=== PATIENT | female | born 1995 | race Caucasian/White ===

== ENCOUNTER 2017-10-14 14:07 | Inpatient (IN) | payer OTHER ==
[2017-10-14 15:46] VITALS: BMI 26.9
--- NOTE | 2017-10-14 15:59 | HP ---
COWS - Scale Resting Pulse: 1= [place] 81-100 Sweatin= Chills/Flushing Restless Observation: 3= Extraneous Movement Pupil Size: 1= Pupils >than Normal Bone or Joint Aches: 2= Severe Diffuse Aches Runny Nose/ Eye Tearin= Runny Nose/Eyes GI Upset > 30mins: 1= Stomach Cramp Tremor Observation: 2= Slight Tremor Visible Yawning Observation: 2= >3x During Session Anxiety or Irritability: 2=Irritable/Anxious Goose Flesh Skin: 0=Smooth Skin COWS Score: 17 Admission [facility] Chief Complaint: opioid withdrawal sx Allergies/Adverse Reactions: Allergies Allergy/AdvReac Type Severity Reaction Status Date / Time No Known Allergies Allergy Verified 10/14/17 15:55 History of Present Illness: 22 years old female with long history of opioid nicotine dependence has anxiety and right leg neuropathy is admitted to detox Exam Limitations: No Limitations - Ebola screening Have you traveled outside of the country in the last 21 days: No (N) Have you had contact with anyone from an Ebola affected area: No Have you been sick,other than usual withdrawal symptoms: No Do you have a fever: No - Review of Systems Constitutional: Changes in sleep, Weight Stable EENT: reports: No Symptoms Reported Respiratory: reports: Productive cough (greenish) Cardiac: reports: No Symptoms Reported GI: reports: Nausea, Poor Fluid Intake, Abdominal cramping : reports: No Symptoms Reported Musculoskeletal: reports: Back Pain, Joint Pain, Muscle Pain, Neck Pain Integumentary: reports: Change in Color (iv opioid) Neuro: reports: Tremors Endocrine: reports: No Symptoms Reported Hematology: reports: No Symptoms Reported Psychiatric: reports: Judgement Intact, Orientated x3, Anxious, Depressed Other Systems: Reviewed and Negative Patient History - Patient Medical History Hx Anemia: No Hx Asthma: No Hx Chronic Obstructive Pulmonary Disease (COPD): No Hx Cancer: No Hx Cardiac Disorders: No Hx Congestive Heart Failure: No Hx Hypertension: No Hx Hypercholesterolemia: No Hx Pacemaker: No HX Cerebrovascular Accident: No Hx Seizures: No Hx Dementia: No Hx Diabetes: No Hx Gastrointestinal Disorders: No Hx Liver Disease: No Hx Genitourinary Disorders: No Hx Sexually Transmitted Disorders: No Hx Renal Disease (ESRD): No Hx Thyroid Disease: No Hx Human Immunodeficiency Virus (HIV): No Hx Hepatitis C: No Hx Depression: Yes Hx Suicide Attempt: No Hx Bipolar Disorder: No Hx Schizophrenia: No - Patient Surgical History Past Surgical History: Yes Hx Neurologic Surgery: No Hx Cataract Extraction: No Hx Cardiac Surgery: No Hx Lung Surgery: No Hx Breast Surgery: No Hx Breast Biopsy: No Hx Abdominal Surgery: No Hx Appendectomy: No Hx Cholecystectomy: No Hx Genitourinary Surgery: No Hx Section: No Hx Orthopedic Surgery: Yes (right foot 2016) Hx Hysterectomy: No Anesthesia Reaction: No - PPD History Previous Implant?: Yes Documented Results: Negative w/o proof Implanted On Prior R Admission?: No PPD to be Administered?: Yes - Reproductive History Patient is a Female of Child Bearing Age (11 -55 yrs old): Yes Last Menstrual Period: 10/03/17 Patient : No - Smoking Cessation Smoking history: Current every day smoker Have you smoked in the past 12 months: Yes Aproximately how many cigarettes per day: 15 Cigars Per Day: 0 Hx Chewing Tobacco Use: No Initiated information on smoking cessation: Yes 'Breaking Loose' booklet given: 10/14/17 - Substance & Tx. History Hx Alcohol Use: No Hx Substance Use: Yes Substance Use Type: Cocaine, Marijuana, Opiates Hx Substance Use Treatment: Yes (08/2017 [facility]) - Substances Abused Heroin Route: Injection Frequency: Daily Amount used: 15 bags Age of first use: 13 Date of Last Use: 10/14/17 Family Disease History - Family Disease History Family Disease History: Diabetes: Father (), Other: Father Admission Physical Exam BHS - Vital Signs Vital Signs: Vital Signs - 24 hr 10/14/17 15:18 Temperature 97.8 F Pulse Rate 89 Respiratory 20 Rate Blood Pressure 128/73 - Physical General Appearance: Yes: Appropriately Dressed, Mild Distress, Tremorous, Irritable, Sweating, Anxious HEENTM: Yes: Hearing grossly Normal, Normocephalic, Normal Voice Respiratory: Yes: Chest Non-Tender, Lungs Clear, Normal Breath Sounds, No Respiratory Distress, No Accessory Muscle Use Neck: Yes: Supple, Trachea in good position Breast: Yes: Breasts Symetrical, No Discharge Cardiology: Yes: Regular Rhythm, Regular Rate, S1, S2 Abdominal: Yes: Normal Bowel Sounds, Non Tender, Flat Genitourinary: Yes: Within Normal Limits Back: Yes: Normal Inspection Musculoskeletal: Yes: full range of Motion, Gait Steady, Back pain, Muscle Pain Extremities: Yes: Normal Inspection, Normal Range of Motion, Non-Tender, Tremors Neurological: Yes: Fully Oriented, Alert, Motor Strength 5/5, Normal Response, Depressed Affect Integumentary: Yes: Warm, Track Razo (chest wall) Lymphatic: Yes: Within Normal Limits - Diagnostic (1) Opioid dependence with withdrawal Current Visit: Yes Status: Acute (2) Nicotine dependence Current Visit: Yes Status: Acute Qualifiers: Nicotine product type: cigarettes Substance use status: in withdrawal Qualified Code(s): F17.213 - Nicotine dependence, cigarettes, with withdrawal (3) Neuropathy of right lower extremity Current Visit: Yes Status: Chronic (4) Anxiety Current Visit: Yes Status: Suspected Cleared for Admission [facility] - Detox or Rehab [facility] Level of Care: Medically Managed Detox Regimen/Protocol: Methadone [facility] Breath Alcohol Content Breath Alcohol Content: 0 Urine Pregancy Test - Result Urine Test Results: Negative- NO Line Present Urine Drug Screen - Results Drug Screen Negative: No Urine Drug Screen Results: THC-Marijuana, CORA-Cocaine, OPI-Opiates, MTD- Methadone
[2017-10-14] MEDS ORDERED: guaiFENesin/D-METHORPHAN HB 10 ML UNIT-DOSE CUPS PO PRN (16:03)
[2017-10-14] MEDS ORDERED: LOPERAMIDE HCL 2 MG CAPSULE PO PRN (16:03)
[2017-10-14] MEDS ORDERED: MAG HYDROX/AL HYDROX/SIMETH 30 ML UNIT-DOSE CUP PO PRN (16:03)
[2017-10-14] MEDS ORDERED: MAGNESIUM CITRATE 300 ML BOTTLE PO PRN (16:03)
[2017-10-14] MEDS ORDERED: IBUPROFEN 400 MG TABLET (FP) PO PRN (16:03)
[2017-10-14] MEDS ORDERED: ACETAMINOPHEN 325 MG TABLET (FP) PO PRN (16:36)
[2017-10-14] MEDS ORDERED: MAGNESIUM HYDROX 2400MG/30ML ORAL SUSPENSION 30 ML CUP PO PRN (16:37)
[2017-10-14] MEDS ORDERED: MENTHOL/PHENOL 1 EACH UD MM PRN (16:37)
[2017-10-14] MEDS ORDERED: P-EPHED 60MG/TRIPROLIDI 2.5MG TABLET PO PRN (16:39)
[2017-10-14] MEDS ORDERED: BACITRACIN 0.9 GM PACKET TP ONE (17:30)
[2017-10-14] MEDS ORDERED: METHADONE HCL 10 MG TABLET (FOR DETOX USE ONLY) PO ONE ×2 (17:30→23:00)
[2017-10-14] MEDS: diazePAM 5 MG TABLET PO PRN (18:13)
[2017-10-14] MEDS: NICOTINE 21 MG/24 HOURS TOPICAL PATCH TD SCH ×2 (18:14→20:05)
[2017-10-14] MEDS ORDERED: MELATONIN 5 MG TABLETS PO PRN (22:00)
[2017-10-14] MEDS: THIAMINE HCL 100 MG TABLET (FP) PO SCH (22:33)
[2017-10-14] MEDS: GABAPENTIN 300 MG CAPSULE (FP) PO SCH (22:33)
[2017-10-14] MEDS: BACLOFEN 10 MG TABLET (FP) PO SCH (22:33)
[2017-10-15] MEDS: BACLOFEN 10 MG TABLET (FP) PO SCH ×3 (05:23→22:50)
[2017-10-15] MEDS: GABAPENTIN 300 MG CAPSULE (FP) PO SCH ×3 (05:23→22:51)
--- NOTE | 2017-10-15 09:22 | EKG ---
Test Reason : Blood Pressure : / mmHG Vent. Rate : 075 BPM Atrial Rate : 075 BPM P-R Int : 124 ms QRS Dur : 090 ms QT Int : 394 ms P-R-T Axes : 044 076 018 degrees QTc Int : 439 ms NORMAL SINUS RHYTHM NORMAL ECG NO PREVIOUS ECGS AVAILABLE Confirmed by RHONA MORRIS, JIA ([id number]) on 10/15/2017 9:22:23 AM Referred By: Confirmed By:JIA MELGOZA MD
[2017-10-15] MEDS ORDERED: METHADONE HCL 10 MG TABLET (FOR DETOX USE ONLY) PO ONE (10:00)
[2017-10-15 10:05] LABS: URINE APPEARANCE TURBID; URINE BILIRUBIN NEGATIVE (<2.0 mg/dL); URINE COLOR YELLOW; URINE GLUCOSE (UA) NEGATIVE (NEGATIVE); URINE KETONE TRACE (NEGATIVE); URINE LEUK ESTERASE NEGATIVE (NEGATIVE); URINE NITRITE NEGATIVE (NEGATIVE); URINE PROTEIN NEGATIVE (NEGATIVE); URINE UROBILINOGEN NEGATIVE mg/dL (0.2-1.0)
[2017-10-15 10:10] LABS: HEMATOCRIT 38.6 % (32.4-45.2); HEMOGLOBIN 13.3 GM/dL (10.7-15.3); MCH 29.8 pg (25.7-33.7); MCHC 34.5 g/dl (32.0-36.0); MEAN CELL VOLUME 86.5 fl (80-96); MEAN PLT VOLUME 7.5 fl (7.5-11.1); PLATELET COUNT 368 K/MM3 (134-434); RBC 4.47 M/mm3 (3.60-5.2); RDW 14.3 % (11.6-15.6); WHITE BLOOD COUNT 6.2 K/mm3 (4.0-10.0)
[2017-10-15] MEDS: PRENATAL VITAMINS W/ FOLIC ACID TABLET (FP) PO SCH (10:23)
[2017-10-15] MEDS: diazePAM 5 MG TABLET PO PRN ×4 (10:24→23:08)
[2017-10-15] MEDS: NICOTINE 21 MG/24 HOURS TOPICAL PATCH TD SCH (10:24)
[2017-10-15 10:34] LABS: ALBUMIN 3.8 g/dl (3.4-5.0); ALK PHOS 60 U/L (45-117); ANION GAP 7 (8-16); BILIRUBIN,TOTAL 0.3 mg/dL (0.2-1.0); BLOOD UREA NITROGEN 12 mg/dL (7-18); CALCIUM 8.8 mg/dL (8.5-10.1); CHLORIDE 106 mmol/L (98-107); CO2 28 mmol/L (21-32); CREATININE 0.8 mg/dL (0.55-1.02); GLUCOSE,RANDOM 85 mg/dL (74-106); POTASSIUM 4.3 mmol/L (3.5-5.1); SGOT/AST 9 U/L (15-37); SGPT/ALT 19 U/L (12-78); SODIUM 141 mmol/L (136-145); TOT PROT 7.2 g/dl (6.4-8.2)
--- NOTE | 2017-10-15 14:03 | CONSULT ---
[facility] Psychiatric Consult - Data Date of interview: 10/15/17 Admission source: [facility] Identifying data: First admission to [facility] for this 22 y/o female seeking detox treatment on for heroin,cocaine (crack) and cannabis dependence.Patient is single without dependents,domiciled,unemployed and supported on food stamps. Substance Abuse History: Discussed with patient.Ms Putnam confirms continuous use of heroin (IV),crack,marihuana and occasional street purchases of xanax.Details in current [facility] report : Smoking history: Current every day smoker. Have you smoked in the past 12 months: Yes. Aproximately how many cigarettes per day: 15. Cigars Per Day: 0. Hx Chewing Tobacco Use: No. Initiated information on smoking cessation: Yes. 'Breaking Loose' booklet given : 10/14/17. - Substance & Tx. History. Hx Alcohol Use: No. Hx Substance Use: Yes. Substance Use Type: Cocaine, Marijuana, Opiates. Hx Substance Use Treatment: Yes (08/2017 [facility]). - Substances Abused. Heroin. Route : Injection. Frequency: Daily. Amount used: 15 bags. Age of first use: 13. Date of Last Use: 10/14/17 Medical History: Patient endorses good general health. Psychiatric History: Patient denies. Physical/Sexual Abuse/Trauma History: Patient denies. Additional Comment: Urine Drug Screen Results: THC-Marijuana, CORA-Cocaine, OPI- Opiates, MTD-Methadone.Noted. Mental Status Exam - Mental Status Exam Alert and Oriented to: Time, Place, Person Cognitive Function: Good Patient Appearance: Well Groomed Mood: Hopeful, Euthymic Affect: Appropriate, Normal Range Patient Behavior: Appropriate, Cooperative Speech Pattern: Clear, Appropriate Voice Loudness: Normal Thought Process: Intact, Goal Oriented Thought Disorder: Not Present Hallucinations: Denies Suicidal Ideation: Denies Homicidal Ideation: Denies Insight/Judgement: Poor Sleep: Poorly, Difficulty falling asleep (wants trazodone) Appetite: Good Muscle strength/Tone: Normal Gait/Station: Normal Psychiatric Findings - Problem List ([place] 1, 2,3) (1) Opioid dependence with withdrawal Current Visit: Yes Status: Acute (2) Nicotine dependence Current Visit: Yes Status: Acute Qualifiers: Nicotine product type: cigarettes Substance use status: in withdrawal Qualified Code(s): F17.213 - Nicotine dependence, cigarettes, with withdrawal (3) Cocaine dependence Current Visit: Yes Status: Acute (4) Cannabis dependence Current Visit: Yes Status: Acute (5) Insomnia Current Visit: Yes Status: Acute - Initial Treatment Plan Initial Treatment Plan: Psychoeducation.Sleep hygiene.Detoxification in effect.Trazodone 50 mg po hs (patient's specific request).Side effects/benefits discussed with the patient.Agrees with this careplan.Observation.Medication is verified : prior exposure to trazodone is confirmed by pharmacy claims of .
--- NOTE | 2017-10-15 15:36 | PN ---
BHS COWS - Scale Resting Pulse: 1= [place] 81-100 Sweatin= Chills/Flushing Restless Observation: 3= Extraneous Movement Pupil Size: 1= Pupils >than Normal Bone or Joint Aches: 2= Severe Diffuse Aches Runny Nose/ Eye Tearin= Nasal Congestion GI Upset > 30mins: 2= Nausea/Diarrhea Tremor Observation of Outstretched Hands: 2= Slight Tremor Visible Yawning Observation: 1= 1-2x During Session Anxiety or Irritability: 2=Irritable/Anxious Goose Flesh Skin: 0=Smooth Skin COWS Score: 16 S Progress Note (SOAP) Subjective: ALERT,PAIN IN THE BODY AND BACK,TREMOR,INTERRUPTED SLEEP Objective: 10/15/17 15:34 Vital Signs Temperature 99.9 F H 10/15/17 14:00 Pulse Rate 91 H 10/15/17 14:00 Respiratory Rate 20 10/15/17 14:00 Blood Pressure 99/63 10/15/17 14:00 O2 Sat by Pulse Oximetry (%) EKG NSR,NORMAL ECG PROLONG QT 394/439 Laboratory Last Values WBC 6.2 K/mm3 (4.0-10.0) 10/15/17 08:00 RBC 4.47 M/mm3 (3.60-5.2) 10/15/17 08:00 Hgb 13.3 GM/dL (10.7-15.3) 10/15/17 08:00 Hct 38.6 % (32.4-45.2) 10/15/17 08:00 MCV 86.5 fl (80-96) 10/15/17 08:00 MCH 29.8 pg (25.7-33.7) 10/15/17 08:00 MCHC 34.5 g/dl (32.0-36.0) 10/15/17 08:00 RDW 14.3 % (11.6-15.6) 10/15/17 08:00 Plt Count 368 K/MM3 (134-434) 10/15/17 08:00 MPV 7.5 fl (7.5-11.1) 10/15/17 08:00 Sodium 141 mmol/L (136-145) 10/15/17 08:00 Potassium 4.3 mmol/L (3.5-5.1) 10/15/17 08:00 Chloride 106 mmol/L (98-107) 10/15/17 08:00 Carbon Dioxide 28 mmol/L (21-32) 10/15/17 08:00 Anion Gap 7 (8-16) L 10/15/17 08:00 BUN 12 mg/dL (7-18) 10/15/17 08:00 Creatinine 0.8 mg/dL (0.55-1.02) 10/15/17 08:00 Creat Clearance w eGFR > 60 (>60) 10/15/17 08:00 Random Glucose 85 mg/dL (74-106) 10/15/17 08:00 Calcium 8.8 mg/dL (8.5-10.1) 10/15/17 08:00 Total Bilirubin 0.3 mg/dL (0.2-1.0) 10/15/17 08:00 AST 9 U/L (15-37) L 10/15/17 08:00 ALT 19 U/L (12-78) 10/15/17 08:00 Alkaline Phosphatase 60 U/L (45-117) 10/15/17 08:00 Total Protein 7.2 g/dl (6.4-8.2) 10/15/17 08:00 Albumin 3.8 g/dl (3.4-5.0) 10/15/17 08:00 Urine Color Yellow 10/15/17 09:00 Urine Appearance Turbid 10/15/17 09:00 Urine pH 5.0 (5.0-8.0) 10/15/17 09:00 Ur Specific [place] 1.017 (1.001-1.035) 10/15/17 09:00 Urine Protein Negative (NEGATIVE) 10/15/17 09:00 Urine Glucose (UA) Negative (NEGATIVE) 10/15/17 09:00 Urine Ketones Trace (NEGATIVE) H 10/15/17 09:00 Urine Blood Negative (NEGATIVE) 10/15/17 09:00 Urine Nitrite Negative (NEGATIVE) 10/15/17 09:00 Urine Bilirubin Negative (<2.0 mg/dL) 10/15/17 09:00 Urine Urobilinogen Negative mg/dL (0.2-1.0) 10/15/17 09:00 Ur Leukocyte Esterase Negative (NEGATIVE) 10/15/17 09:00 RPR Titer Nonreactive (NONREACTIVE) 10/15/17 08:00 HIV 1&2 Antibody Screen Negative 10/15/17 08:00 HIV P24 Antigen Negative 10/15/17 08:00 Assessment: 10/15/17 15:35 WITHDRAWAL SYMPTOM Plan: CONTINUE DETOX
[2017-10-15] MEDS: THIAMINE HCL 100 MG TABLET (FP) PO SCH (22:51)
[2017-10-15] MEDS: traZODone HCL 50 MG TABLET (FP) PO SCH (22:52)
[2017-10-16] MEDS: BACLOFEN 10 MG TABLET (FP) PO SCH ×3 (06:05→22:15)
[2017-10-16] MEDS: GABAPENTIN 300 MG CAPSULE (FP) PO SCH ×3 (06:05→22:15)
[2017-10-16] MEDS ORDERED: METHADONE HCL 5 MG TABLET (FOR DETOX USE ONLY) PO ONE (10:00)
[2017-10-16] MEDS: diazePAM 5 MG TABLET PO PRN ×3 (10:21→19:03)
[2017-10-16] MEDS: PRENATAL VITAMINS W/ FOLIC ACID TABLET (FP) PO SCH (10:22)
[2017-10-16] MEDS: NICOTINE 21 MG/24 HOURS TOPICAL PATCH TD SCH (10:22)
--- NOTE | 2017-10-16 16:48 | PN ---
BHS COWS - Scale Resting Pulse: 1= [place] 81-100 Sweatin= Chills/Flushing Restless Observation: 3= Extraneous Movement Pupil Size: 0= Normal to Room Light Bone or Joint Aches: 2= Severe Diffuse Aches Runny Nose/ Eye Tearin= Runny Nose/Eyes GI Upset > 30mins: 2= Nausea/Diarrhea Tremor Observation of Outstretched Hands: 2= Slight Tremor Visible Yawning Observation: 1= 1-2x During Session Anxiety or Irritability: 2=Irritable/Anxious Goose Flesh Skin: 0=Smooth Skin COWS Score: 16 BHS Progress Note (SOAP) Subjective: Patient asleep but easily aroused, refused to speak with aligner typewriter Objective: 10/16/17 16:47 Last Vital Signs Temp Pulse Resp BP Pulse Ox 97.1 F L 81 16 99/64 10/16/17 14:00 10/16/17 14:00 10/16/17 14:00 10/16/17 14:00 Laboratory Tests 10/15/17 10/15/17 10/15/17 08:00 08:00 08:00 WBC 6.2 RBC 4.47 Hgb 13.3 Hct 38.6 MCV 86.5 MCH 29.8 MCHC 34.5 RDW 14.3 Plt Count 368 MPV 7.5 Sodium 141 Potassium 4.3 Chloride 106 Carbon Dioxide 28 Anion Gap 7 L BUN 12 Creatinine 0.8 Creat Clearance w eGFR > 60 Random Glucose 85 Calcium 8.8 Total Bilirubin 0.3 AST 9 L ALT 19 Alkaline Phosphatase 60 Total Protein 7.2 Albumin 3.8 Urine Color Urine Appearance Urine pH Ur Specific [place] Urine Protein Urine Glucose (UA) Urine Ketones Urine Blood Urine Nitrite Urine Bilirubin Urine Urobilinogen Ur Leukocyte Esterase RPR Titer Nonreactive HIV 1&2 Antibody Screen HIV P24 Antigen 10/15/17 10/15/17 08:00 09:00 WBC RBC Hgb Hct MCV MCH MCHC RDW Plt Count MPV Sodium Potassium Chloride Carbon Dioxide Anion Gap BUN Creatinine Creat Clearance w eGFR Random Glucose Calcium Total Bilirubin AST ALT Alkaline Phosphatase Total Protein Albumin Urine Color Yellow Urine Appearance Turbid Urine pH 5.0 Ur Specific [place] 1.017 Urine Protein Negative Urine Glucose (UA) Negative Urine Ketones Trace H Urine Blood Negative Urine Nitrite Negative Urine Bilirubin Negative Urine Urobilinogen Negative Ur Leukocyte Esterase Negative RPR Titer HIV 1&2 Antibody Screen Negative HIV P24 Antigen Negative Labs reviewed Assessment: 10/16/17 16:48 Withdrawal symptoms Plan: Continue detox Encouraged PO hydration (water)
[2017-10-16] MEDS: traZODone HCL 50 MG TABLET (FP) PO SCH (22:15)
[2017-10-16] MEDS: BACITRACIN 0.9 GM PACKET TP SCH (22:15)
[2017-10-16] MEDS: THIAMINE HCL 100 MG TABLET (FP) PO SCH (22:15)
[2017-10-17] MEDS: BACLOFEN 10 MG TABLET (FP) PO SCH ×3 (06:34→22:10)
[2017-10-17] MEDS: GABAPENTIN 300 MG CAPSULE (FP) PO SCH ×3 (06:34→22:10)
[2017-10-17] MEDS ORDERED: METHADONE HCL 5 MG TABLET (FOR DETOX USE ONLY) PO ONE (10:00)
[2017-10-17] MEDS: BACITRACIN 0.9 GM PACKET TP SCH ×2 (10:57→22:09)
[2017-10-17] MEDS: PRENATAL VITAMINS W/ FOLIC ACID TABLET (FP) PO SCH (10:57)
[2017-10-17] MEDS: NICOTINE 21 MG/24 HOURS TOPICAL PATCH TD SCH (10:57)
[2017-10-17] MEDS: diazePAM 5 MG TABLET PO PRN ×2 (11:02→15:14)
--- NOTE | 2017-10-17 12:26 | PN ---
BHS Progress Note (SOAP) Subjective: joint pain body ache sweat tremor trouble sleep anxiety irritable Objective: 10/17/17 12:25 Vital Signs Temperature 97.7 F 10/17/17 10:21 Pulse Rate 69 10/17/17 10:21 Respiratory Rate 18 10/17/17 10:21 Blood Pressure 101/61 10/17/17 10:21 O2 Sat by Pulse Oximetry (%) Laboratory Last Values WBC 6.2 K/mm3 (4.0-10.0) 10/15/17 08:00 RBC 4.47 M/mm3 (3.60-5.2) 10/15/17 08:00 Hgb 13.3 GM/dL (10.7-15.3) 10/15/17 08:00 Hct 38.6 % (32.4-45.2) 10/15/17 08:00 MCV 86.5 fl (80-96) 10/15/17 08:00 MCH 29.8 pg (25.7-33.7) 10/15/17 08:00 MCHC 34.5 g/dl (32.0-36.0) 10/15/17 08:00 RDW 14.3 % (11.6-15.6) 10/15/17 08:00 Plt Count 368 K/MM3 (134-434) 10/15/17 08:00 MPV 7.5 fl (7.5-11.1) 10/15/17 08:00 Sodium 141 mmol/L (136-145) 10/15/17 08:00 Potassium 4.3 mmol/L (3.5-5.1) 10/15/17 08:00 Chloride 106 mmol/L (98-107) 10/15/17 08:00 Carbon Dioxide 28 mmol/L (21-32) 10/15/17 08:00 Anion Gap 7 (8-16) L 10/15/17 08:00 BUN 12 mg/dL (7-18) 10/15/17 08:00 Creatinine 0.8 mg/dL (0.55-1.02) 10/15/17 08:00 Creat Clearance w eGFR > 60 (>60) 10/15/17 08:00 Random Glucose 85 mg/dL (74-106) 10/15/17 08:00 Calcium 8.8 mg/dL (8.5-10.1) 10/15/17 08:00 Total Bilirubin 0.3 mg/dL (0.2-1.0) 10/15/17 08:00 AST 9 U/L (15-37) L 10/15/17 08:00 ALT 19 U/L (12-78) 10/15/17 08:00 Alkaline Phosphatase 60 U/L (45-117) 10/15/17 08:00 Total Protein 7.2 g/dl (6.4-8.2) 10/15/17 08:00 Albumin 3.8 g/dl (3.4-5.0) 10/15/17 08:00 Urine Color Yellow 10/15/17 09:00 Urine Appearance Turbid 10/15/17 09:00 Urine pH 5.0 (5.0-8.0) 10/15/17 09:00 Ur Specific [place] 1.017 (1.001-1.035) 10/15/17 09:00 Urine Protein Negative (NEGATIVE) 10/15/17 09:00 Urine Glucose (UA) Negative (NEGATIVE) 10/15/17 09:00 Urine Ketones Trace (NEGATIVE) H 10/15/17 09:00 Urine Blood Negative (NEGATIVE) 10/15/17 09:00 Urine Nitrite Negative (NEGATIVE) 10/15/17 09:00 Urine Bilirubin Negative (<2.0 mg/dL) 10/15/17 09:00 Urine Urobilinogen Negative mg/dL (0.2-1.0) 10/15/17 09:00 Ur Leukocyte Esterase Negative (NEGATIVE) 10/15/17 09:00 RPR Titer Nonreactive (NONREACTIVE) 10/15/17 08:00 HIV 1&2 Antibody Screen Negative 10/15/17 08:00 HIV P24 Antigen Negative 10/15/17 08:00 lab noted Assessment: 10/17/17 12:26 withdrawal sx Plan: continue detox
[2017-10-17] MEDS: NICOTINE POLACRILEX 4 MG GUM BUC PRN ×2 (14:35→22:37)
[2017-10-17] MEDS: traZODone HCL 50 MG TABLET (FP) PO SCH (22:09)
[2017-10-17] MEDS: THIAMINE HCL 100 MG TABLET (FP) PO SCH (22:10)
[2017-10-18] MEDS: GABAPENTIN 300 MG CAPSULE (FP) PO SCH ×3 (05:46→22:07)
[2017-10-18] MEDS: BACLOFEN 10 MG TABLET (FP) PO SCH ×3 (05:46→22:07)
[2017-10-18] MEDS ORDERED: METHADONE HCL 10 MG TABLET (FOR DETOX USE ONLY) PO ONE (10:00)
[2017-10-18] MEDS: BACITRACIN 0.9 GM PACKET TP SCH ×2 (10:19→22:07)
[2017-10-18] MEDS: NICOTINE 21 MG/24 HOURS TOPICAL PATCH TD SCH (10:19)
[2017-10-18] MEDS: PRENATAL VITAMINS W/ FOLIC ACID TABLET (FP) PO SCH (10:19)
--- NOTE | 2017-10-18 12:05 | PN ---
BHS Progress Note (SOAP) Subjective: feeling better less sweat no tremor tolerated food and fluid well slept throughout the night Objective: 10/18/17 12:05 Vital Signs Temperature 98.2 F 10/18/17 09:01 Pulse Rate 79 10/18/17 09:01 Respiratory Rate 16 10/18/17 09:01 Blood Pressure 121/59 10/18/17 09:01 O2 Sat by Pulse Oximetry (%) Laboratory Last Values WBC 6.2 K/mm3 (4.0-10.0) 10/15/17 08:00 RBC 4.47 M/mm3 (3.60-5.2) 10/15/17 08:00 Hgb 13.3 GM/dL (10.7-15.3) 10/15/17 08:00 Hct 38.6 % (32.4-45.2) 10/15/17 08:00 MCV 86.5 fl (80-96) 10/15/17 08:00 MCH 29.8 pg (25.7-33.7) 10/15/17 08:00 MCHC 34.5 g/dl (32.0-36.0) 10/15/17 08:00 RDW 14.3 % (11.6-15.6) 10/15/17 08:00 Plt Count 368 K/MM3 (134-434) 10/15/17 08:00 MPV 7.5 fl (7.5-11.1) 10/15/17 08:00 Sodium 141 mmol/L (136-145) 10/15/17 08:00 Potassium 4.3 mmol/L (3.5-5.1) 10/15/17 08:00 Chloride 106 mmol/L (98-107) 10/15/17 08:00 Carbon Dioxide 28 mmol/L (21-32) 10/15/17 08:00 Anion Gap 7 (8-16) L 10/15/17 08:00 BUN 12 mg/dL (7-18) 10/15/17 08:00 Creatinine 0.8 mg/dL (0.55-1.02) 10/15/17 08:00 Creat Clearance w eGFR > 60 (>60) 10/15/17 08:00 Random Glucose 85 mg/dL (74-106) 10/15/17 08:00 Calcium 8.8 mg/dL (8.5-10.1) 10/15/17 08:00 Total Bilirubin 0.3 mg/dL (0.2-1.0) 10/15/17 08:00 AST 9 U/L (15-37) L 10/15/17 08:00 ALT 19 U/L (12-78) 10/15/17 08:00 Alkaline Phosphatase 60 U/L (45-117) 10/15/17 08:00 Total Protein 7.2 g/dl (6.4-8.2) 10/15/17 08:00 Albumin 3.8 g/dl (3.4-5.0) 10/15/17 08:00 Urine Color Yellow 10/15/17 09:00 Urine Appearance Turbid 10/15/17 09:00 Urine pH 5.0 (5.0-8.0) 10/15/17 09:00 Ur Specific [place] 1.017 (1.001-1.035) 10/15/17 09:00 Urine Protein Negative (NEGATIVE) 10/15/17 09:00 Urine Glucose (UA) Negative (NEGATIVE) 10/15/17 09:00 Urine Ketones Trace (NEGATIVE) H 10/15/17 09:00 Urine Blood Negative (NEGATIVE) 10/15/17 09:00 Urine Nitrite Negative (NEGATIVE) 10/15/17 09:00 Urine Bilirubin Negative (<2.0 mg/dL) 10/15/17 09:00 Urine Urobilinogen Negative mg/dL (0.2-1.0) 10/15/17 09:00 Ur Leukocyte Esterase Negative (NEGATIVE) 10/15/17 09:00 RPR Titer Nonreactive (NONREACTIVE) 10/15/17 08:00 HIV 1&2 Antibody Screen Negative 10/15/17 08:00 HIV P24 Antigen Negative 10/15/17 08:00 lab noted Assessment: 10/18/17 12:05 mild withdrawal sx Plan: medically supervised detox
[2017-10-18] MEDS: THIAMINE HCL 100 MG TABLET (FP) PO SCH (22:07)
[2017-10-18] MEDS: traZODone HCL 50 MG TABLET (FP) PO SCH (22:07)
[2017-10-19] MEDS: BACLOFEN 10 MG TABLET (FP) PO SCH (05:33)
[2017-10-19] MEDS: GABAPENTIN 300 MG CAPSULE (FP) PO SCH (05:33)
[2017-10-19] MEDS ORDERED: METHADONE HCL 5 MG TABLET (FOR DETOX USE ONLY) PO ONE (06:00)
--- NOTE | 2017-10-19 08:53 | DS ---
[facility] Detox Discharge Summary Admission Date: 10/14/17 Discharge Date: 10/19/17 - History Present History: Opioid Dependence Additional Comments: 22 years old female admitted on 10/14/17 for opioid withdrawal sx completed opioid detox regimen tolerated well denies opioid withdrawal sx alert oriented x 3 no acute distress agrees aftercare [place] for recovery maintaining sober - Physical Exam Results Vital Signs: Vital Signs Temperature 96.8 F L 10/19/17 06:00 Pulse Rate 65 10/19/17 06:00 Respiratory Rate 18 10/19/17 06:00 Blood Pressure 110/58 10/19/17 06:00 O2 Sat by Pulse Oximetry (%) Pertinent Admission Physical Exam Findings: withdrawal sx Vital Signs Temperature 96.8 F L 10/19/17 06:00 Pulse Rate 65 10/19/17 06:00 Respiratory Rate 18 10/19/17 06:00 Blood Pressure 110/58 10/19/17 06:00 O2 Sat by Pulse Oximetry (%) Laboratory Last Values WBC 6.2 K/mm3 (4.0-10.0) 10/15/17 08:00 RBC 4.47 M/mm3 (3.60-5.2) 10/15/17 08:00 Hgb 13.3 GM/dL (10.7-15.3) 10/15/17 08:00 Hct 38.6 % (32.4-45.2) 10/15/17 08:00 MCV 86.5 fl (80-96) 10/15/17 08:00 MCH 29.8 pg (25.7-33.7) 10/15/17 08:00 MCHC 34.5 g/dl (32.0-36.0) 10/15/17 08:00 RDW 14.3 % (11.6-15.6) 10/15/17 08:00 Plt Count 368 K/MM3 (134-434) 10/15/17 08:00 MPV 7.5 fl (7.5-11.1) 10/15/17 08:00 Sodium 141 mmol/L (136-145) 10/15/17 08:00 Potassium 4.3 mmol/L (3.5-5.1) 10/15/17 08:00 Chloride 106 mmol/L (98-107) 10/15/17 08:00 Carbon Dioxide 28 mmol/L (21-32) 10/15/17 08:00 Anion Gap 7 (8-16) L 10/15/17 08:00 BUN 12 mg/dL (7-18) 10/15/17 08:00 Creatinine 0.8 mg/dL (0.55-1.02) 10/15/17 08:00 Creat Clearance w eGFR > 60 (>60) 10/15/17 08:00 Random Glucose 85 mg/dL (74-106) 10/15/17 08:00 Calcium 8.8 mg/dL (8.5-10.1) 10/15/17 08:00 Total Bilirubin 0.3 mg/dL (0.2-1.0) 10/15/17 08:00 AST 9 U/L (15-37) L 10/15/17 08:00 ALT 19 U/L (12-78) 10/15/17 08:00 Alkaline Phosphatase 60 U/L (45-117) 10/15/17 08:00 Total Protein 7.2 g/dl (6.4-8.2) 10/15/17 08:00 Albumin 3.8 g/dl (3.4-5.0) 10/15/17 08:00 Urine Color Yellow 10/15/17 09:00 Urine Appearance Turbid 10/15/17 09:00 Urine pH 5.0 (5.0-8.0) 10/15/17 09:00 Ur Specific [place] 1.017 (1.001-1.035) 10/15/17 09:00 Urine Protein Negative (NEGATIVE) 10/15/17 09:00 Urine Glucose (UA) Negative (NEGATIVE) 10/15/17 09:00 Urine Ketones Trace (NEGATIVE) H 10/15/17 09:00 Urine Blood Negative (NEGATIVE) 10/15/17 09:00 Urine Nitrite Negative (NEGATIVE) 10/15/17 09:00 Urine Bilirubin Negative (<2.0 mg/dL) 10/15/17 09:00 Urine Urobilinogen Negative mg/dL (0.2-1.0) 10/15/17 09:00 Ur Leukocyte Esterase Negative (NEGATIVE) 10/15/17 09:00 RPR Titer Nonreactive (NONREACTIVE) 10/15/17 08:00 HIV 1&2 Antibody Screen Negative 10/15/17 08:00 HIV P24 Antigen Negative 10/15/17 08:00 lab noted - Treatment Hospital Course: Detox Protocol Followed, Detoxed Safely, Responded well, Discharged Condition Good, Rehab Referral Accepted Patient has Accepted a Rehab Referral to: [facility] - Medication Discharge Medications: Ambulatory Orders Gabapentin [Neurontin -] 300 mg PO TID #90 capsule 10/18/17 - Diagnosis (1) Opioid dependence with withdrawal Current Visit: Yes Status: Acute (2) Nicotine dependence Current Visit: Yes Status: Acute Qualifiers: Nicotine product type: cigarettes Substance use status: in withdrawal Qualified Code(s): F17.213 - Nicotine dependence, cigarettes, with withdrawal (3) Neuropathy of right lower extremity Current Visit: Yes Status: Chronic (4) Anxiety Current Visit: Yes Status: Suspected - AMA Did Patient Leave Against Medical Advice: No
[2017-10-19 10:26] VITALS: BP 112/75; PULSE 91; TEMP 97.7
== END 2017-10-19 09:03 | disposition home or self-care (01) | DRG 773 ==
LOC: YASAS 14:07 → Y6N 16:50
PROVIDERS: ADMIT Surgery; ATTEND Surgery
PROC: HZ2ZZZZ Detoxification Services for Substance Abuse Treatment (ICD-10-PCS; principal; 2017-10-14)
DX: F11.23 Opioid dependence with withdrawal (principal); F14.20 Cocaine dependence, uncomplicated; F12.20 Cannabis dependence, uncomplicated; F17.213 Nicotine dependence, cigarettes, with withdrawal; F41.9 Anxiety disorder, unspecified; G62.9 Polyneuropathy, unspecified; G47.00 Insomnia, unspecified
CPT/HCPCS: 36415; 80053; 81003; 85027; 86593; 87389; 93005; 93010; J0475